=== PATIENT | male | born 1955 | race Caucasian/White ===

== ENCOUNTER → 2017-06-16 | Outpatient (REF) | payer MEDICARE, MEDICAID ==
[2017-06-16 14:48] LABS: MALB URINE SIEMENS 41.3 MG/L; MAU/CREAT RATIO 25.4 MCG/MG (0.0-30.0)
[2017-06-16 15:06] LABS: ESTIMATED AVERAGE GLUCOSE 292 MG/DL (60-110); HEMOGLOBIN A1c 11.8 %
[2017-06-16 15:21] LABS: ALBUMIN 4.1 GM/DL (3.2-5.2); ALBUMIN/GLOBULIN RATIO 1.41 (1.00-1.93); ALKALINE PHOSPHATASE 114 U/L (45-117); ALT/SGPT 51 U/L (12-78); ANION GAP 10 MEQ/L (8-16); AST/SGOT 16 U/L (7-37); BILIRUBIN,TOTAL 0.4 MG/DL (0.2-1.0); BLOOD UREA NITROGEN 19 MG/DL (7-18); CALCIUM LEVEL 9.2 MG/DL (8.8-10.2); CARBON DIOXIDE LEVEL 24 MEQ/L (21-32); CHLORIDE LEVEL 102 MEQ/L (98-107); CHOLESTEROL LEVEL 162 MG/DL (<200); CHOLESTEROL RISK RATIO 3.446 (<5); CREATININE FOR GFR 0.95 MG/DL (0.70-1.30); GLOMERULAR FILTRATION RATE > 60.0 (>49); GLUCOSE, FASTING 299 MG/DL (70-100); HDL CHOLESTEROL 47 MG/DL (>40); LDL CHOLESTEROL 61.2 MG/DL (<100); NON-HDL-C 115 MG/DL; POTASSIUM SERUM 4.3 MEQ/L (3.5-5.1); SODIUM LEVEL 136 MEQ/L (136-145); TRIGLYCERIDES LEVEL 269 MG/DL (<150)
== END ==
LOC: M LAB REF 12:57
DX: E11.9 Type 2 diabetes mellitus without complications (principal)
CPT/HCPCS: 84443

== ENCOUNTER → 2018-01-14 | Outpatient (REF) | payer MEDICARE, MEDICAID ==
[2018-01-14 14:25] LABS: ALBUMIN 3.8 GM/DL (3.2-5.2); ALBUMIN/GLOBULIN RATIO 1.19 (1.00-1.93); ALKALINE PHOSPHATASE 118 U/L (45-117); ALT/SGPT 26 U/L (12-78); ANION GAP 7 MEQ/L (8-16); AST/SGOT 7 U/L (7-37); BILIRUBIN,TOTAL 0.4 MG/DL (0.2-1.0); BLOOD UREA NITROGEN 18 MG/DL (7-18); CALCIUM LEVEL 8.9 MG/DL (8.8-10.2); CARBON DIOXIDE LEVEL 28 MEQ/L (21-32); CHLORIDE LEVEL 102 MEQ/L (98-107); CHOLESTEROL LEVEL 149 MG/DL (<200); CHOLESTEROL RISK RATIO 3.547 (<5); CREATININE FOR GFR 0.84 MG/DL (0.70-1.30); GLOMERULAR FILTRATION RATE > 60.0 (>49); GLUCOSE, FASTING 241 MG/DL (70-100); HDL CHOLESTEROL 42 MG/DL (>40); LDL CHOLESTEROL 59 MG/DL (<100); NON-HDL-C 107 MG/DL; POTASSIUM SERUM 4.3 MEQ/L (3.5-5.1); SODIUM LEVEL 137 MEQ/L (136-145); TRIGLYCERIDES LEVEL 239 MG/DL (<150)
[2018-01-14 16:39] LABS: ESTIMATED AVERAGE GLUCOSE 255 MG/DL (60-110); HEMOGLOBIN A1c 10.5 %
== END ==
LOC: M LAB REF 12:59
DX: E11.21 Type 2 diabetes mellitus with diabetic nephropathy (principal)
CPT/HCPCS: 84443

== ENCOUNTER → 2018-11-11 | Outpatient (REF) | payer MEDICARE, MEDICAID ==
[2018-11-11 19:15] LABS: BASO # 0.1 10^3/uL (0.0-0.2); BASO % 0.8 % (0.0-1.0); EOS # 0.3 10^3/uL (0.0-0.50); EOS % 2.8 % (0.0-3.0); HEMATOCRIT 48.9 % (42.0-52.0); HEMOGLOBIN 16.1 g/dl (13.5-17.5); LYMPH # 2.6 10^3/uL (1.5-4.5); LYMPH % 24.4 % (24.0-44.0); MEAN CORPUSCULAR HEMOGLOBIN 30.4 pg (27.0-33.0); MEAN CORPUSCULAR HGB CONC 32.9 g/dl (32.0-36.5); MEAN CORPUSCULAR VOLUME 92.3 fl (80.0-96.0); MONO # 1.1 10^3/uL (0.0-0.8); MONO % 10.8 % (0.0-5.0); NEUTROPHILS # 6.4 10^3/uL (1.8-7.7); NEUTROPHILS % 60.8 % (36.0-66.0); PLATELET COUNT, AUTOMATED 229 10^3/uL (150-450); WHITE BLOOD COUNT 10.5 10^3/uL (4.0-10.0)
[2018-11-11 19:35] LABS: HEMOGLOBIN A1c 11.2 %
[2018-11-11 19:47] LABS: ALBUMIN 4.1 GM/DL (3.2-5.2); ALT/SGPT 24 U/L (12-78); BILIRUBIN,TOTAL 0.2 MG/DL (0.2-1.0); BLOOD UREA NITROGEN 19 MG/DL (7-18); CALCIUM LEVEL 9.4 MG/DL (8.8-10.2); CARBON DIOXIDE LEVEL 29 MEQ/L (21-32); CHLORIDE LEVEL 104 MEQ/L (98-107); CHOLESTEROL LEVEL 155 MG/DL (<200); CREATININE FOR GFR 1.03 MG/DL (0.70-1.30); FREE T4 1.03 NG/DL (0.76-1.46); GLOMERULAR FILTRATION RATE > 60.0 (>49); GLUCOSE, FASTING 271 MG/DL (70-100); HDL CHOLESTEROL 50 MG/DL (>40); LDL CHOLESTEROL 67 MG/DL (<100); NON-HDL-C 105 MG/DL; POTASSIUM SERUM 4.7 MEQ/L (3.5-5.1); SODIUM LEVEL 139 MEQ/L (136-145); TOTAL PROTEIN 7.2 GM/DL (6.4-8.2); TRIGLYCERIDES LEVEL 188 MG/DL (<150)
== END ==
LOC: M LAB REF 18:30
PROVIDERS: ATTEND Nurse Practitioner Family
DX: Z83.49 Family history of other endocrine, nutritional and metabolic diseases (principal); E11.9 Type 2 diabetes mellitus without complications

== ENCOUNTER → 2018-12-24 | Outpatient (REF) | payer MEDICARE, MEDICAID ==
[2018-12-24 13:26] LABS: BASO # 0.1 10^3/uL (0.0-0.2); BASO % 0.7 % (0.0-1.0); EOS # 0.2 10^3/uL (0.0-0.50); HEMATOCRIT 51.3 % (42.0-52.0); HEMOGLOBIN 16.6 g/dl (13.5-17.5); LYMPH # 2.7 10^3/uL (1.5-4.5); LYMPH % 23.6 % (24.0-44.0); MEAN CORPUSCULAR HEMOGLOBIN 29.5 pg (27.0-33.0); MEAN CORPUSCULAR HGB CONC 32.4 g/dl (32.0-36.5); MEAN CORPUSCULAR VOLUME 91.3 fl (80.0-96.0); MONO % 8.7 % (0.0-5.0); NEUTROPHILS # 7.5 10^3/uL (1.8-7.7); NEUTROPHILS % 64.6 % (36.0-66.0); PLATELET COUNT, AUTOMATED 221 10^3/uL (150-450); RED BLOOD COUNT 5.62 10^6/uL (4.30-6.10); WHITE BLOOD COUNT 11.6 10^3/uL (4.0-10.0)
[2018-12-24 13:40] LABS: ALT/SGPT 30 U/L (12-78); BILIRUBIN,TOTAL 0.6 MG/DL (0.2-1.0); BLOOD UREA NITROGEN 22 MG/DL (7-18); CALCIUM LEVEL 9.8 MG/DL (8.8-10.2); CARBON DIOXIDE LEVEL 28 MEQ/L (21-32); CHLORIDE LEVEL 105 MEQ/L (98-107); CREATININE FOR GFR 1.06 MG/DL (0.70-1.30); GLOMERULAR FILTRATION RATE > 60.0 (>49); GLUCOSE, FASTING 177 MG/DL (70-100); POTASSIUM SERUM 4.2 MEQ/L (3.5-5.1); SODIUM LEVEL 139 MEQ/L (136-145)
[2018-12-24 13:41] LABS: ALBUMIN 4.4 GM/DL (3.2-5.2); CHOLESTEROL LEVEL 139 MG/DL (<200); CHOLESTEROL RISK RATIO 3.088 (<5); FREE T4 1.16 NG/DL (0.76-1.46); HDL CHOLESTEROL 45 MG/DL (>40); LDL CHOLESTEROL 58 MG/DL (<100); NON-HDL-C 94 MG/DL; TOTAL PROTEIN 7.6 GM/DL (6.4-8.2); TRIGLYCERIDES LEVEL 179 MG/DL (<150)
[2018-12-24 14:18] LABS: HEMOGLOBIN A1c 10.7 %
== END ==
LOC: M LAB REF 12:46
PROVIDERS: ATTEND Nurse Practitioner Family
DX: Z83.49 Family history of other endocrine, nutritional and metabolic diseases (principal); Z13.9 Encounter for screening, unspecified; E11.9 Type 2 diabetes mellitus without complications

== ENCOUNTER → 2019-09-08 | Outpatient (REF) | payer MEDICARE, MEDICAID ==
[2019-09-08 12:46] LABS: BASO # 0.1 10^3/uL (0.0-0.2); BASO % 0.5 % (0.0-1.0); EOS # 0.2 10^3/uL (0.0-0.5); EOS % 1.4 % (0.0-3.0); HEMATOCRIT 48.4 % (42.0-52.0); HEMOGLOBIN 15.8 g/dl (13.5-17.5); LYMPH # 2.2 10^3/uL (1.5-5.0); LYMPH % 19.7 % (24.0-44.0); MEAN CORPUSCULAR HEMOGLOBIN 29.5 pg (27.0-33.0); MEAN CORPUSCULAR HGB CONC 32.6 g/dl (32.0-36.5); MEAN CORPUSCULAR VOLUME 90.3 fl (80.0-96.0); MONO % 9.3 % (0.0-5.0); NEUTROPHILS # 7.6 10^3/uL (1.5-8.5); NEUTROPHILS % 68.7 % (36.0-66.0); PLATELET COUNT, AUTOMATED 218 10^3/uL (150-450); RED BLOOD COUNT 5.36 10^6/uL (4.30-6.10); WHITE BLOOD COUNT 11.1 10^3/uL (4.0-10.0)
[2019-09-08 13:05] LABS: ALBUMIN 4.2 GM/DL (3.2-5.2); ALT/SGPT 36 U/L (12-78); BILIRUBIN,TOTAL 0.6 MG/DL (0.2-1.0); BLOOD UREA NITROGEN 17 MG/DL (7-18); CARBON DIOXIDE LEVEL 28 MEQ/L (21-32); CHLORIDE LEVEL 99 MEQ/L (98-107); CHOLESTEROL LEVEL 147 MG/DL (<200); CHOLESTEROL RISK RATIO 3.127 (<5); CREATININE FOR GFR 0.97 MG/DL (0.70-1.30); GLOMERULAR FILTRATION RATE > 60.0 (>49); GLUCOSE, FASTING 311 MG/DL (70-100); HDL CHOLESTEROL 47 MG/DL (>40); LDL CHOLESTEROL 70 MG/DL (<100); NON-HDL-C 100 MG/DL; POTASSIUM SERUM 4.6 MEQ/L (3.5-5.1); SODIUM LEVEL 135 MEQ/L (136-145); TOTAL 25(OH) VITAMIN D 20.7 NG/ML (30.0-100.0); TOTAL PROTEIN 7.3 GM/DL (6.4-8.2); TRIGLYCERIDES LEVEL 152 MG/DL (<150)
[2019-09-08 13:10] LABS: HEMOGLOBIN A1c 9.8 %
== END ==
LOC: M LAB REF 11:52
PROVIDERS: ATTEND Family Medicine
DX: E11.9 Type 2 diabetes mellitus without complications (principal); Z79.899 Other long term (current) drug therapy

== ENCOUNTER → 2022-05-03 | Outpatient (REF) | payer MEDICARE, MEDICAID ==
[2022-05-03 12:59] LABS: CHOLESTEROL RISK RATIO 2.35 (<5); FREE T4 1.18 NG/DL (0.89-1.76); HDL CHOLESTEROL 53.6 MG/DL (>40)
[2022-05-03 13:00] LABS: THYROID STIMULATING HORMONE 1.5 uIU/ML (0.55-4.78); TOTAL 25(OH) VITAMIN D 26.3 NG/ML (20.0-100.0)
== END ==
LOC: M LAB REF 11:40
PROVIDERS: ATTEND Nurse Practitioner Family
DX: Z13.228 Encounter for screening for other metabolic disorders (principal)

== ENCOUNTER → 2022-06-18 | Outpatient (REF) | payer MEDICARE, MEDICAID ==
[2022-06-18 13:17] LABS: CREATININE, URINE 72.1 MG/DL
== END ==
LOC: M LAB REF 11:38
PROVIDERS: ATTEND Nurse Practitioner Family
DX: E11.8 Type 2 diabetes mellitus with unspecified complications (principal)

== ENCOUNTER → 2022-08-02 | Outpatient (REF) | payer MEDICARE, MEDICAID ==
[2022-08-02 12:42] LABS: MAU/CREAT RATIO 370.7 MCG/MG (0.0-30.0)
[2022-08-02 18:11] LABS: HEMOGLOBIN A1c 10.6 % (4.0-6.0)
== END ==
LOC: M LAB REF 11:38
PROVIDERS: ATTEND Nurse Practitioner Family
DX: E11.21 Type 2 diabetes mellitus with diabetic nephropathy (principal)

== ENCOUNTER → 2023-01-10 | Outpatient (REF) | payer MEDICARE, MEDICAID ==
[2023-01-10 17:50] LABS: CREATININE, URINE 55.9 MG/DL; MAU/CREAT RATIO 200.3 MCG/MG (0.0-30.0)
[2023-01-10 19:46] LABS: BASO # 0.1 10^3/uL (0.0-0.2); BASO % 0.9 % (0.0-1.0); EOS # 0.2 10^3/uL (0.0-0.5); EOS % 2.1 % (0.0-3.0); HEMATOCRIT 48.4 % (42.0-52.0); HEMOGLOBIN 15.8 g/dl (13.5-17.5); LYMPH # 2.8 10^3/uL (1.5-5.0); LYMPH % 24.7 % (24.0-44.0); MEAN CORPUSCULAR HEMOGLOBIN 29.5 pg (27.0-33.0); MEAN CORPUSCULAR HGB CONC 32.6 g/dl (32.0-36.5); MEAN CORPUSCULAR VOLUME 90.3 fl (80.0-96.0); MONO % 8.6 % (2.0-8.0); NEUTROPHILS % 62.5 % (36.0-66.0); PLATELET COUNT, AUTOMATED 193 10^3/uL (150-450); RED BLOOD COUNT 5.36 10^6/uL (4.30-6.10); WHITE BLOOD COUNT 11.2 10^3/uL (4.0-10.0)
[2023-01-10 20:10] LABS: ALBUMIN 4.1 G/DL (3.2-5.2); ALKALINE PHOSPHATASE 94 U/L (46-116); ALT/SGPT 34 U/L (7.0-40); AST/SGOT 10 U/L (<34); BILIRUBIN,TOTAL 0.5 MG/DL (0.3-1.2); BLOOD UREA NITROGEN 26 MG/DL (9-23); CALCIUM LEVEL 9.3 MG/DL (8.3-10.6); CARBON DIOXIDE LEVEL 28 MMOL/L (20-31); CHLORIDE LEVEL 104 MMOL/L (98-107); CREATININE FOR GFR 0.93 MG/DL (0.70-1.30); GLOMERULAR FILTRATION RATE > 60.0 (>49); GLUCOSE, FASTING 159 MG/DL (74-106); HEMOGLOBIN A1c 10.3 % (4.0-6.0); POTASSIUM SERUM 4.9 MMOL/L (3.5-5.1); SODIUM LEVEL 138 MMOL/L (136-145)
== END ==
LOC: M LAB REF 16:04
PROVIDERS: ATTEND Nurse Practitioner Family
DX: E11.69 Type 2 diabetes mellitus with other specified complication (principal); I10 Essential (primary) hypertension

== ENCOUNTER → 2023-06-06 | Outpatient (REF) | payer MEDICARE, MEDICAID ==
[2023-06-06 13:00] LABS: CREATININE, URINE 102.6 MG/DL; CREATININE,RANDOM URINE 102.6 MG/DL; MAU/CREAT RATIO 250.4 MCG/MG (0.0-30.0)
[2023-06-06 13:30] LABS: BASO # 0.1 10^3/uL (0.0-0.2); BASO % 0.7 % (0.0-1.0); EOS # 0.2 10^3/uL (0.0-0.5); EOS % 2.3 % (0.0-3.0); HEMATOCRIT 42.8 % (42.0-52.0); HEMOGLOBIN 14.3 g/dl (13.5-17.5); LYMPH # 2.8 10^3/uL (1.5-5.0); LYMPH % 31.4 % (24.0-44.0); MEAN CORPUSCULAR HEMOGLOBIN 29.7 pg (27.0-33.0); MEAN CORPUSCULAR HGB CONC 33.4 g/dl (32.0-36.5); MEAN CORPUSCULAR VOLUME 88.8 fl (80.0-96.0); MONO % 11.2 % (2.0-8.0); NEUTROPHILS # 4.8 10^3/uL (1.5-8.5); NEUTROPHILS % 54.2 % (36.0-66.0); PLATELET COUNT, AUTOMATED 204 10^3/uL (150-450); RED BLOOD COUNT 4.82 10^6/uL (4.30-6.10); WHITE BLOOD COUNT 8.9 10^3/uL (4.0-10.0)
[2023-06-06 13:52] LABS: TOTAL IRON BINDING CAPACITY 294 UG/DL (250-425)
[2023-06-06 13:53] LABS: PROSTATIC SPECIFIC AG MONITOR 0.43 NG/ML (< 4.00)
[2023-06-06 13:55] LABS: HEMOGLOBIN A1c 8.3 % (4.0-6.0)
[2023-06-06 13:56] LABS: ALBUMIN 3.7 G/DL (3.2-5.2); ALKALINE PHOSPHATASE 101 U/L (46-116); ALT/SGPT 38 U/L (7.0-40); AST/SGOT 12 U/L (<34); BILIRUBIN,TOTAL 0.7 MG/DL (0.3-1.2); BLOOD UREA NITROGEN 17 MG/DL (9-23); CALCIUM LEVEL 9.4 MG/DL (8.3-10.6); CARBON DIOXIDE LEVEL 31 MMOL/L (20-31); CHLORIDE LEVEL 104 MMOL/L (98-107); CHOLESTEROL LEVEL 97 MG/DL (<200); CHOLESTEROL RISK RATIO 2.27 (<5); CREATININE FOR GFR 0.96 MG/DL (0.70-1.30); GLOMERULAR FILTRATION RATE > 60.0 (>49); GLUCOSE, FASTING 148 MG/DL (74-106); HDL CHOLESTEROL 42.6 MG/DL (>40); IRON (FE) 64 UG/DL (65-175); NON-HDL-C 54.4 MG/DL; PERCENT SATURATION 21.8 % (19.7-50.0); POTASSIUM SERUM 4.9 MMOL/L (3.5-5.1); SODIUM LEVEL 139 MMOL/L (136-145); TOTAL PROTEIN 6.4 G/DL (5.7-8.2); TRIGLYCERIDES LEVEL 102 MG/DL (<150)
[2023-06-06 13:57] LABS: THYROID STIMULATING HORMONE 3.067 uIU/ML (0.55-4.78)
== END ==
LOC: M LAB REF 12:10
PROVIDERS: ATTEND Nurse Practitioner Family
DX: E11.21 Type 2 diabetes mellitus with diabetic nephropathy (principal); E78.00 Pure hypercholesterolemia, unspecified; Z68.28 Body mass index [BMI] 28.0-28.9, adult; R16.0 Hepatomegaly, not elsewhere classified; L29.9 Pruritus, unspecified; Z12.5 Encounter for screening for malignant neoplasm of prostate

== ENCOUNTER → 2023-06-30 | Outpatient (CLI) | payer MEDICARE, MEDICAID | LOC: M RAD 07:21 | PROVIDERS: ATTEND Nurse Practitioner Family | DX: R16.0 Hepatomegaly, not elsewhere classified (principal); Z13.6 Encounter for screening for cardiovascular disorders ==

== ENCOUNTER → 2023-07-02 | Outpatient (CLI) | payer MEDICARE, MEDICAID | LOC: M RAD 07:06 | PROVIDERS: ATTEND Nurse Practitioner Family | DX: J98.11 Atelectasis (principal); Z12.2 Encounter for screening for malignant neoplasm of respiratory organs; F17.211 Nicotine dependence, cigarettes, in remission ==

== ENCOUNTER → 2023-08-08 | Outpatient (REF) | payer MEDICARE, MEDICAID ==
[2023-08-08 13:08] LABS: CREATININE, URINE 88.9 MG/DL
[2023-08-08 13:09] LABS: MAU/CREAT RATIO 107.9 MCG/MG (0.0-30.0)
== END ==
LOC: M LAB REF 11:27
PROVIDERS: ATTEND Nurse Practitioner Family
DX: E11.21 Type 2 diabetes mellitus with diabetic nephropathy (principal)

== ENCOUNTER → 2023-08-25 | Outpatient (CLI) | payer MEDICARE, MEDICAID | LOC: M PLAIMG 10:04 | PROVIDERS: ATTEND Nurse Practitioner Family | DX: Z12.2 Encounter for screening for malignant neoplasm of respiratory organs (principal); Z72.0 Tobacco use; R91.8 Other nonspecific abnormal finding of lung field ==

== ENCOUNTER → 2024-02-05 | Outpatient (REF) | payer MEDICARE, MEDICAID ==
[2024-02-05 13:52] LABS: ALKALINE PHOSPHATASE 110 U/L (46-116); ALT/SGPT 41 U/L (7.0-40); AST/SGOT 17 U/L (<34); BILIRUBIN,TOTAL 0.5 MG/DL (0.3-1.2); BLOOD UREA NITROGEN 42 MG/DL (9-23); CARBON DIOXIDE LEVEL 29 MMOL/L (20-31); CHLORIDE LEVEL 106 MMOL/L (98-107); CHOLESTEROL LEVEL 103 MG/DL (<200); CHOLESTEROL RISK RATIO 2.16 (<5); CREATININE FOR GFR 1.23 MG/DL (0.70-1.30); GLOMERULAR FILTRATION RATE > 60.0 (>42); GLUCOSE, FASTING 202 MG/DL (74-106); HDL CHOLESTEROL 47.5 MG/DL (>40); LDL CHOLESTEROL 42.3 MG/DL (<100); NON-HDL-C 55.5 MG/DL; POTASSIUM SERUM 4.7 MMOL/L (3.5-5.1); SODIUM LEVEL 138 MMOL/L (136-145); TOTAL PROTEIN 6.8 G/DL (5.7-8.2); TRIGLYCERIDES LEVEL 66 MG/DL (<150)
[2024-02-05 13:53] LABS: THYROID STIMULATING HORMONE 1.489 uIU/ML (0.55-4.78)
[2024-02-05 14:12] LABS: HEMOGLOBIN A1c 9.6 % (4.0-6.0)
== END ==
LOC: M LAB REF 12:42
PROVIDERS: ATTEND Family Medicine Addiction Medicine
DX: E11.9 Type 2 diabetes mellitus without complications (principal)

== ENCOUNTER → 2024-12-21 | Outpatient (REF) | payer MEDICARE, MEDICAID ==
[2024-12-21 13:57] LABS: CALCIUM LEVEL 8.7 MG/DL (8.3-10.6); CARBON DIOXIDE LEVEL 30.0 MMOL/L (20-31); CHLORIDE LEVEL 106.0 MMOL/L (98-107); CREATININE FOR GFR 1.33 MG/DL (0.70-1.30); GLOMERULAR FILTRATION RATE 57.2 (>42); POTASSIUM SERUM 4.6 MMOL/L (3.5-5.1); SODIUM LEVEL 143.0 MMOL/L (136-145)
[2024-12-21 14:28] LABS: ESTIMATED AVERAGE GLUCOSE 197.0 MG/DL (60-110)
== END ==
LOC: M LAB REF 13:15
PROVIDERS: ATTEND Nurse Practitioner Family
DX: E11.8 Type 2 diabetes mellitus with unspecified complications (principal); I10 Essential (primary) hypertension

== ENCOUNTER → 2024-12-30 | Outpatient (CLI) | payer MEDICARE, MEDICAID | LOC: M RAD 10:27 | PROVIDERS: ATTEND Nurse Practitioner Family | DX: R91.1 Solitary pulmonary nodule (principal); I25.10 Atherosclerotic heart disease of native coronary artery without angina pectoris ==

== ENCOUNTER 2025-02-12 02:53 | Inpatient (IN) | payer MEDICARE, MEDICAID ==
[~2025-02-12] VITALS: Ht 154.9 cm; Wt 65.3 kg
[~2025-02-12 02:53] MED LIST: UNRESOLVED CLARIFICATION ENTRY XX SCH
[2025-02-12] MEDS ORDERED: IPRATROPIUM 0.5 MG/ALBUTEROL 2.5 MG INH SOL UD 3 ML As Ordered ONE (03:20)
[2025-02-12] MEDS: IPRATROPIUM 0.5 MG/ALBUTEROL 2.5 MG INH SOL UD 3 ML NEB ONE (03:21)
[2025-02-12 03:35] LABS: VENOUS BASE EXCESS 0.2 (-2.0-2.0); VENOUS HCO3 29.0 MMOL/L (23.0-27.0); VENOUS O2 SATURATION 47.4 % (60.0-80.0); VENOUS PARTIAL PRESSURE CO2 66.3 mmHg (38.0-50.0); VENOUS PARTIAL PRESSURE O2 27.9 mmHg (30.0-50.0); VENOUS PH 7.259 UNITS (7.330-7.430); VENOUS STANDARD HCO3 23.5 MMOL/L; VENOUS TOTAL CO2 31.1 MMOL/L (24.0-28.0)
[2025-02-12 03:46] LABS: BASO # 0.1 10^3/uL (0.0-0.2); BASO % 0.7 % (0.0-1.0); EOS # 0.2 10^3/uL (0.0-0.5); EOS % 1.4 % (0.0-3.0); LYMPH # 1.1 10^3/uL (1.5-5.0); LYMPH % 9.5 % (24.0-44.0); MONO # 1.0 10^3/uL (0.0-0.8); MONO % 8.7 % (2.0-8.0); NEUTROPHILS # 9.5 10^3/uL (1.5-8.5); NEUTROPHILS % 79.2 % (36.0-66.0); PLATELET COUNT, AUTOMATED 205 10^3/uL (150-450)
[2025-02-12 04:12] LABS: CK-MB VALUE MASS 6.5 NG/ML (<3.6); CPK CREATINE PHOSPHOKINASE 129.0 U/L (46-171); MB/CK RELATIVE INDEX 5.03 (< OR =4)
[2025-02-12 04:50] LABS: ALT/SGPT 65.0 U/L (7.0-40); AST/SGOT 37.0 U/L (<34); CALCIUM LEVEL 8.4 MG/DL (8.3-10.6); CARBON DIOXIDE LEVEL 27.0 MMOL/L (20-31); CHLORIDE LEVEL 107.0 MMOL/L (98-107); CREATININE FOR GFR 1.35 MG/DL (0.70-1.30); GLOMERULAR FILTRATION RATE 56.1 (>42); POTASSIUM SERUM 4.2 MMOL/L (3.5-5.1); SODIUM LEVEL 142.0 MMOL/L (136-145)
[2025-02-12] MEDS ORDERED: ISOVUE-370 76% 100 ML VIAL As Ordered ONE (05:31)
[2025-02-12 06:07] LABS: CK-MB VALUE MASS 6.6 NG/ML (<3.6)
[2025-02-12 06:08] LABS: CPK CREATINE PHOSPHOKINASE 131.0 U/L (46-171); MB/CK RELATIVE INDEX 5.03 (< OR =4)
[2025-02-12 06:38] LABS: ABG BASE EXCESS 0.3 (-2.0-2.0); ABG HCO3 26.1 MMOL/L (22.0-26.0); ABG O2 SATURATION 93.5 % (95.0-99.0); ABG PARTIAL PRESSURE CO2 46.7 mmHg (35.0-45.0); ABG PARTIAL PRESSURE O2 70.2 mmHg (75.0-100.0); ABG STANDARD HCO3 24.7 MMOL/L. (22.0-26.0); ABG TOTAL CO2 27.5 MMOL/L (23.0-31.0); ABG pH (ARTERIAL) 7.365 UNITS (7.350-7.450)
[2025-02-12 07:12] LABS: CK-MB VALUE MASS 6.6 NG/ML (<3.6)
[2025-02-12 07:13] LABS: CPK CREATINE PHOSPHOKINASE 127.0 U/L (46-171); MB/CK RELATIVE INDEX 5.19 (< OR =4)
[2025-02-12] MEDS: FUROSEMIDE 40 MG/4 ML VIAL IV ONE (07:20)
[2025-02-12] MEDS: NITROGLYCERIN 0.4 MG SUBL TABLET SL STA (08:30)
[2025-02-12] MEDS ORDERED: GLUCAGON INJ 1 MG VIAL SC PRN (08:55)
[2025-02-12] MEDS ORDERED: GLUCOSE 4 GM CHEW PO PRN (08:55)
[2025-02-12] MEDS ORDERED: DEXTROSE 50% 50 ML SYRINGE IV PRN (08:55)
[2025-02-12] MEDS ORDERED: JARD1TAB3 PO (09:49)
[2025-02-12] MEDS ORDERED: LISI20TA33 PO (09:49)
[2025-02-12] MEDS ORDERED: HOME MED LIST COMPLETE! XX SCH (09:50)
[2025-02-12 12:31] VITALS: BP 179/84; TEMP 97; O2SAT 94
[2025-02-12] MEDS: amLODIPine 5 MG TAB PO ONE (12:44)
[2025-02-12] MEDS: INSULIN LISPRO (NovoLOG) PER UNIT SC SCH ×2 (12:45→20:59)
[2025-02-12] MEDS: ASPIRIN 81 MG ENTERIC TABLET PO SCH (14:36)
[2025-02-12 14:39] VITALS: BP 177/81
[2025-02-12] MEDS: IPRATROPIUM 0.5 MG/ALBUTEROL 2.5 MG INH SOL UD 3 ML NEB SCH (14:49)
[2025-02-12] MEDS ORDERED: NITROGLYCERIN 0.3 MG SUBL TAB SL ONE (15:00)
[2025-02-12] MEDS: NITROGLYCERIN 0.4 MG SUBL TABLET SL ONE (15:05)
[2025-02-12 16:46] VITALS: BP 163/72; TEMP 97.2; O2SAT 95
[2025-02-12 20:08] VITALS: BP 143/69; TEMP 98.3; O2SAT 92
[2025-02-12] MEDS: ENOXAPARIN 40 MG/0.4 ML SYRINGE (J1650 PER 10MG) SC SCH (21:04)
[2025-02-12] MEDS: ATORVASTATIN 20 MG TAB PO SCH (21:04)
[2025-02-13] VITALS (7 sets, daily range): BP systolic 126–178; BP diastolic 60–96; TEMP 97.1–98.2; O2SAT 90–93
[2025-02-13 07:42] LABS: PLATELET COUNT, AUTOMATED 217 10^3/uL (150-450)
[2025-02-13 08:09] LABS: CALCIUM LEVEL 9.1 MG/DL (8.3-10.6); CARBON DIOXIDE LEVEL 31.0 MMOL/L (20-31); CHLORIDE LEVEL 104.0 MMOL/L (98-107); CHOLESTEROL LEVEL 109.0 MG/DL (<200); CHOLESTEROL RISK RATIO 2.31 (<5); CREATININE FOR GFR 1.2 MG/DL (0.70-1.30); GLOMERULAR FILTRATION RATE 64.7 (>42); LDL CHOLESTEROL 40.3 MG/DL (<100); MAGNESIUM LEVEL 2.3 MG/DL (1.8-2.4); NON-HDL-C 61.9 MG/DL; POTASSIUM SERUM 4.1 MMOL/L (3.5-5.1); SODIUM LEVEL 145.0 MMOL/L (136-145); TRIGLYCERIDES LEVEL 108.0 MG/DL (<150)
[2025-02-13] MEDS: MIRALAX *UNIT DOSE* 17 GM PACKET PO ONE (08:20)
[2025-02-13] MEDS: FUROSEMIDE 40 MG/4 ML VIAL IV SCH (08:21)
[2025-02-13] MEDS: LOSARTAN 50 MG TABLET PO SCH (08:22)
[2025-02-13] MEDS: LOSARTAN 50 MG TABLET PO ONE (16:37)
[2025-02-14] VITALS (7 sets, daily range): BP systolic 137–184; BP diastolic 63–99; TEMP 97.2–97.6; O2SAT 95–97
[2025-02-14 04:04] LABS: PLATELET COUNT, AUTOMATED 201 10^3/uL (150-450)
[2025-02-14 04:33] LABS: CALCIUM LEVEL 9.3 MG/DL (8.3-10.6); CARBON DIOXIDE LEVEL 31.0 MMOL/L (20-31); CHLORIDE LEVEL 103.0 MMOL/L (98-107); CREATININE FOR GFR 1.27 MG/DL (0.70-1.30); GLOMERULAR FILTRATION RATE 60.4 (>42); POTASSIUM SERUM 4.3 MMOL/L (3.5-5.1); SODIUM LEVEL 141.0 MMOL/L (136-145)
[2025-02-14] MEDS: LOSARTAN 50 MG TABLET PO SCH (07:13)
[2025-02-14] MEDS ORDERED: CARV6.25 PO (13:16)
[2025-02-14] MEDS ORDERED: ATOR1TAB21 PO (13:16)
[2025-02-14] MEDS ORDERED: LOSA-528 PO (13:16)
[2025-02-14] MEDS ORDERED: ASPI81TAEC PO (13:16)
== END 2025-02-14 14:51 | disposition home or self-care (01) | DRG 291 ==
LOC: M ED 02:53 → M ED INP 08:44 → M PCU 12:16
PROVIDERS: ADMIT Student in an Organized Health Care Education/Training Program; ATTEND Student in an Organized Health Care Education/Training Program
PROC: B246ZZZ Ultrasonography of Right and Left Heart (ICD-10-PCS; principal; 2025-02-13)
DX: I11.0 Hypertensive heart disease with heart failure (principal); J96.01 Acute respiratory failure with hypoxia; I50.23 Acute on chronic systolic (congestive) heart failure; E78.5 Hyperlipidemia, unspecified; E11.9 Type 2 diabetes mellitus without complications; I25.10 Atherosclerotic heart disease of native coronary artery without angina pectoris; I25.2 Old myocardial infarction; Z95.5 Presence of coronary angioplasty implant and graft; J44.9 Chronic obstructive pulmonary disease, unspecified; F17.210 Nicotine dependence, cigarettes, uncomplicated; Z91.148 Patient's other noncompliance with medication regimen for other reason; Z79.84 Long term (current) use of oral hypoglycemic drugs; Z79.899 Other long term (current) drug therapy

== ENCOUNTER → 2025-03-16 | Outpatient (CLI) | payer MEDICARE, MEDICAID ==
[~2025-03-16] MED LIST changes: +ASPI81TAEC PO; +ATOR1TAB21 PO; +CARV6.25 PO; +JARD1TAB3 PO; +LISI20TA33 PO; +LOSA-528 PO; -UNRESOLVED CLARIFICATION ENTRY XX SCH
[2025-03-16 09:51] LABS: CALCIUM LEVEL 9.4 MG/DL (8.3-10.6); CARBON DIOXIDE LEVEL 29.0 MMOL/L (20-31); CHLORIDE LEVEL 106.0 MMOL/L (98-107); CREATININE FOR GFR 2.02 MG/DL (0.70-1.30); GLOMERULAR FILTRATION RATE 34.6 (>42); POTASSIUM SERUM 4.9 MMOL/L (3.5-5.1); SODIUM LEVEL 140.0 MMOL/L (136-145)
== END ==
LOC: M LAB 08:42
PROVIDERS: ATTEND Nurse Practitioner Family
DX: I10 Essential (primary) hypertension (principal)